=== PATIENT | female | born 1995 ===

== ENCOUNTER 2016-06-25 13:05 | Inpatient (IN) | payer BC ==
[2016-06-25] MEDS ORDERED: HEPARIN SODIUM,PORCINE 5,000 UNIT/ML 1 ML VIAL SQ ONE (13:45)
[2016-06-25] MEDS ORDERED: HYDROmorphone 1 MG/ML 1 ML SYRINGE IVP PRN (13:46)
--- NOTE | 2016-06-25 13:50 | P.GSHP ---
History of Present Illness H&P Date: 06/25/16 CHIEF COMPLAINT: Cholecystitis HISTORY OF PRESENT ILLNESS: The patient is a 21-year-old female who presented initially to the office with history of epigastric including right upper quadrant abdominal pain. She underwent diagnostic studies for her gallbladder with findings of gallstones. Today, she reports increasing right upper quadrant abdominal pain including symptoms consistent with peritonitis. As result of her features of acute cholecystitis, she has been admitted to undergo surgical intervention. PAST MEDICAL HISTORY: Please see list PAST SURGICAL HISTORY: Please see list MEDICATIONS: Please see list ALLERGIES: Denies. SOCIAL HISTORY: Has tobacco use FAMILY HISTORY: Pertinent for gallbladder disease REVIEW OF ORGAN SYSTEMS: CONSTITUTIONAL: Previous fevers or chills. HEENT: Denies any troubles with the vision or hearing. ENDOCRINE: No reports of hypothyroidism. No diabetes. RESPIRATORY: No recent pneumonias. CARDIOVASCULAR: Denies chest pain or palpitations GI: No blood in stools or constipation. MUSCULOSKELETAL: Has occasional joint pain including back pain. NEURO: No seizure disorders or headaches. No recent stroke. PSYCH: No depression or suicidal ideation. HEMATOLOGIC: No personal or family history of DVTs or pulmonary emboli. PHYSICAL EXAM: VITAL SIGNS: Afebrile vital signs stable GENERAL: Well-developed pleasant in no acute distress. HEENT: No scleral icterus. Extraocular movements grossly intact. Moist buccal mucosa. NECK: Supple without lymphadenopathy. CHEST: Unlabored respirations. Equal bilateral excursions. CARDIOVASCULAR: Regular rate regular rhythm rhythm. Distal 2+ pulses. ABDOMEN: Soft, nondistended. Tender along the epigastrium and right upper quadrant with localized peritonitis. MUSCULOSKELETAL: No clubbing, cyanosis, or edema. NEURO: Cranial nerves II to XII within normal limits. No focal or lateralizing signs. PSYCH: Alert and oriented to person, place and time. ASSESSMENT: 1. Epigastric and right upper quadrant abdominal pain 2. Acute cholecystitis 3. Symptomatic gallstones. 4. Right upper quadrant peritonitis. 5. History of tobacco use. PLAN: 1. Will need a laparoscopic cholecystectomy possible open. Benefits and risks were described. 2. Heparin for DVT prophylaxis 5000 units. 3. Antibiotic prophylaxis. 4. Tobacco cessation and counseling.
[2016-06-25] MEDS ORDERED: SODIUM CHLORIDE 0.9% 1,000 ML IV SCH (14:00)
--- NOTE | 2016-06-25 15:52 | P.HPADDEND ---
H&P Addendum H&P Addendum Date: 06/25/16 Patient in the pediatric unit and is complaining of increased right upper quadrant pain consistent with peritonitis. Labs pending including urine test. Benefits and risks of laparoscopic cholecystectomy reviewed with questions addressed.
[2016-06-25] MEDS ORDERED: ceFAZolin 2 GM in SODIUM CHLORIDE 0.9% 100 ML IVPB ONE (16:00)
[2016-06-25 16:25] VITALS: BMI 30.9
[2016-06-25] MEDS ORDERED: LACTATED RINGERS 1,000 ML IV ONE (16:28)
[2016-06-25] MEDS ORDERED: ONDANSETRON 4 MG/2 ML VIAL IVP ONE (16:29)
[2016-06-25] MEDS ORDERED: DEXAMETHASONE SOD PHOS (MDV) 100 MG/10 ML VIAL IVP ONE (16:29)
[2016-06-25 16:35] LABS: Basophils % (A) 0 %; CH 31.1; CHCM 35.5; Eosinophils # (A) 0.1 k/uL (0-0.7); Eosinophils % (A) 1 %; HCT 45.9 % (34.0-46.0); HGB 15.4 gm/dL (11.4-16.0); Luc # (Auto) 0.15; Luc % (Auto) 1; Lymphocytes # (A) 2.6 k/uL (1.0-4.8); Lymphocytes % (A) 23 %; MCH 29.5 pg (25.0-35.0); MCHC 33.5 g/dL (31.0-37.0); Mean Platelet Volume 7.9; Monocytes # (A) 0.3 k/uL (0-1.0); Monocytes % (A) 3 %; Neutrophils # (A) 8.4 k/uL (1.3-7.7); Neutrophils % (A) 72 %; RBC 5.21 m/uL (3.80-5.40); RDW 12.2 % (11.5-15.5); WBC 11.6 k/uL (3.8-10.6); WBC (Perox) 11.97
[2016-06-25] MEDS ORDERED: GLYCOPYRROLATE 0.2 MG/ML 2 ML VIAL ONE (16:42)
[2016-06-25] MEDS ORDERED: KETOROLAC 30 MG/ML 1 ML VIAL ONE (16:42)
[2016-06-25] MEDS ORDERED: HYDROmorphone (PF) 1 MG/ML ONE (16:42)
[2016-06-25] MEDS ORDERED: LIDOCAINE 1% INJ 10MG/ML (20 ML MDV) ONE (16:42)
[2016-06-25] MEDS ORDERED: SUCCINYLCHOLINE CHLORIDE 100 MG/5 ML SYR IV ONE (16:42)
[2016-06-25] MEDS ORDERED: PROPOFOL 10 MG/ML 20 ML VIAL IV ONE (16:42)
[2016-06-25] MEDS ORDERED: fentaNYL (PF) 50 MCG/ML 2 ML AMP ONE (16:42)
[2016-06-25] MEDS ORDERED: ROCURONIUM BROMIDE 10 MG/ML 10 ML VIAL IV ONE (16:42)
[2016-06-25] MEDS ORDERED: MIDAZOLAM 2 MG/2 ML VIAL ONE (16:42)
[2016-06-25] MEDS ORDERED: NEOSTIGMINE 1 MG/ML 10 ML VIAL ONE (16:42)
[2016-06-25 16:44] LABS: ALT 26 U/L (9-52); AST 15 U/L (14-36); Alkaline Phosphatase 96 U/L (38-126); Anion Gap 10 mmol/L; Blood Urea Nitrogen 9 mg/dL (7-17); Calcium 9.4 mg/dL (8.4-10.2); Carbon Dioxide 24 mmol/L (22-30); Chloride 107 mmol/L (98-107); Glucose 76 mg/dL (74-99); Non-African American GFR(MDRD) >60 (>60 ml/min/1.73 sqM); Potassium 3.9 mmol/L (3.5-5.1); Sodium 141 mmol/L (137-145); Total Bilirubin 0.7 mg/dL (0.2-1.3); Total Protein 7.4 g/dL (6.3-8.2)
[2016-06-25] MEDS ORDERED: BUPIVACAIN-EPI 0.25%-1:200,000 30 ML VIAL SQ ONE (17:11)
--- NOTE | 2016-06-25 17:55 | P.OP ---
Date of Procedure: 06/25/16 Description of Procedure: SURGEON: KIMBER ELLIOTT MD VEHICLE INSPECTOR: None. PREOPERATIVE DIAGNOSES: 1. Acute cholecystitis. 2. Right upper quadrant peritonitis. 3. Family history of gallbladder disease. 4. Obesity, BMI 30.9. 5. History of tobacco use. 6. Leukocytosis. POSTOPERATIVE DIAGNOSES: 1. Acute on chronic cholecystitis. 2. Right upper quadrant peritonitis. 3. Family history of gallbladder disease. 4. Obesity, BMI 30.9. 5. History of tobacco use. 6. Leukocytosis. OPERATION: Laparoscopic cholecystectomy ANESTHESIA: General with 30 mL 0.25% Marcaine with epinephrine. ESTIMATED BLOOD LOSS: 2 mL. SPECIMENS REMOVED: Gallbladder. COMPLICATIONS: None. INDICATIONS: The patient is a 21-year-old female who presents with acute cholelcystitis. Surgical intervention with a laparoscopic cholecystectomy was described at length including injury to the biliary tree, bleeding, infection, need for further surgery. Informed consent was obtained. DESCRIPTION OF THE PROCEDURE: The patient was brought to the operating room, laid in supine position. After general induction, the abdomen was prepped and draped in a standard sterile fashion. Prior to incision, a timeout protocol was confirmed with surgical team regarding patient's name, procedure to be performed including preoperative medications for which she had received heparin 5000 units subcutaneously as well as bilateral SCDs for DVT prophylaxis. A transverse 5 mm incision was made above the umbilicus and off to the right of the midline. Please note the skin was localized prior to incision. A 0 degree 5-mm laparoscopic trocar entry was performed and entered into the peritoneal cavity. Diagnostic laparoscopy confirmed no injury to bowel, viscera or mesentery. The liver serosa was completely unremarkable. Next, two 5 mm trocars were placed along the right costal margin followed by a 11 mm port at the left upper quadrant. The patient was placed in steep reverse Trendelenburg position with the right side up. The gallbladder fundus was retracted over the dome of the liver. Initial attention was brought to the infundibulum which was gently retracted in the inferior lateral approach. Using a Kittner, the cystic duct including the cystic artery was carefully skeletonized. Using a large clip optometry teacher 2 clips were placed proximally, and 2 clips were placed distally along the cystic duct and cystic artery then divided with a Sonicision. Electro-Bovie cautery and Sonicision was used to remove the gallbladder from the hepatic fossa without decompression of the gallbladder. Hemostasis was checked and found to be adequate. The gallbladder was removed from the abdominal cavity using an Endo Catch bag and passed off for further pathological analysis. All instruments and pneumoperitoneum were removed from the abdominal cavity. The fascial defect was less than 8 mm for the 11-mm port site. The rest of incisions were reapproximated using 4-0 Monocryl in an interrupted subcuticular fashion. A total of 30 mL of 0.25% Marcaine with epinephrine was infiltrated to all wounds for postop analgesia. Dermabond was applied to the skin. At the end of the procedure, needle, sponge, and instrument count was verified correct by aviation technician aircraft. The patient had tolerated the procedure well and was taken to postanesthesia care unit in stable condition. Intraoperative films were discussed and reviewed with the patient's family who were pleased with the level of care. FINDINGS: 1. Acute on chronic cholecystitis. 2. Unremarkable liver surface.
[2016-06-25] MEDS ORDERED: ONDANSETRON 4 MG/2 ML VIAL IVP SCH (18:00)
[2016-06-25] MEDS ORDERED: NALOXONE 0.4 MG/ML 1 ML VIAL IV PRN (18:01)
[2016-06-25] MEDS ORDERED: HYDROcodone/APAP 5-325MG 1 EACH TAB PO PRN (18:01)
--- NOTE | 2016-06-25 18:05 | P.DS ---
Providers Date of admission: 06/25/16 15:34 Expected date of discharge: 06/25/16 Attending physician: Daksha Enriquez Primary care physician: Stated None - Discharge Diagnosis(es) (1) Peritonitis Current Visit: Yes Status: Acute (2) Acute cholecystitis Current Visit: Yes Status: Acute (3) Leukocytosis Current Visit: Yes Status: Acute (4) Obesity (BMI 30.0-34.9) Current Visit: Yes Status: Acute (5) Tobacco use Current Visit: Yes Status: Chronic Hospital Course: The patient is a 21-year-old female with history of cholecystitis. She presented with increased right upper quadrant abdominal pain consistent with peritonitis. Additional laboratory studies were consistent with leukocytosis consistent with acute cholecystitis. Laparoscopic cholecystectomy was performed. Her abdominal pain had resolved. She was stable prior to discharge. Procedures: Laparoscopic cholecystectomy Patient Condition at Discharge: Good Plan - Discharge Summary New Discharge Prescriptions: Hydrocodone/Acetaminophen [Lynd 5-325] 1 - 2 each PO Q6HR PRN #30 tab PRN Reason: Pain Discharge Medication List Hydrocodone/Acetaminophen [Lynd 5-325] 1 - 2 each PO Q6HR PRN #30 tab 06/25/16 [Rx] Follow up Appointment(s)/Referral(s): Daksha Enriquez MD [STAFF PHYSICIAN] - 06/30/16 ([facility]) Patient Instructions/Handouts: Laparoscopic Cholecystectomy (DC), Low Fat Diet (DC) Activity/Diet/Wound Care/Special Instructions: No lifting over 4 lbs in 2 weeks. Low fat diet. Discharge Disposition: HOME SELF-CARE
[2016-06-25] MEDS ORDERED: KETOROLAC 30 MG/ML 1 ML VIAL IVP SCH (18:15)
[2016-06-25 19:34] VITALS: TEMP 97.8
[2016-06-25 19:36] VITALS: RESP 16
[2016-06-25 20:11] VITALS: BP 115/65; PULSE 71
== END 2016-06-25 20:20 | disposition home or self-care (01) | DRG 417 ==
LOC: 6PED 15:34
PROVIDERS: ADMIT Surgery Plastic and Reconstructive Surgery; ATTEND Surgery Plastic and Reconstructive Surgery
PROC: 0FT44ZZ Resection of Gallbladder, Percutaneous Endoscopic Approach (ICD-10-PCS; principal; 2016-06-25 07:00)
DX: K81.0 Acute cholecystitis (principal); K65.9 Peritonitis, unspecified; K81.1 Chronic cholecystitis; E66.9 Obesity, unspecified; Z68.30 Body mass index [BMI] 30.0-30.9, adult; Z72.0 Tobacco use; Z79.899 Other long term (current) drug therapy
CPT/HCPCS: 80053; 81025; 85025; 88304